=== PATIENT | female | born 1970 | race Caucasian/White ===

== ENCOUNTER 2016-07-10 14:34 | Emergency (ER) | payer MEDICAID ==
[2015-07-17 06:14] VITALS: BMI 27.3
[~2016-07-10 14:34] MED LIST: ADVIL200 MG PO; BAYER CHEWABLE81 MG PO; BENADRYL25 MG PO; BIAXIN 500 MG500 MG PO; BUPROPION XL300 MG PO; BUTALB-APAP-CA1 EACH PO; CLEOCIN HCL300 MG PO; ESGIC TABLET1 TAB PO; HYDROCODONE-APA1 TAB PO; K-TAB10 MEQ PO; LEVAQUIN500 MG PO; MILK OF MAGNESI30 ML PO; MIRALAX17 GM PO; PERCOCET 10/3251 TA1 PO; PROZAC20 MG PO; RESTORIL15 MG PO; ROXICODONE5 MG PO; VITAMIN B-1000 MCG/M; VITAMIN B-1000 MCG/M IM; ZOFRAN4 MG PO; ZOVIRAX200 MG PO
== END 2016-07-10 16:07 | disposition home or self-care (01) ==
LOC: D.ER 14:34
DX: S16.1XXA Strain of muscle, fascia and tendon at neck level, initial encounter (principal); V43.52XA Car driver injured in collision with other type car in traffic accident, initial encounter; Y93.89 Activity, other specified; Y92.410 Unspecified street and highway as the place of occurrence of the external cause; K21.9 Gastro-esophageal reflux disease without esophagitis; E83.51 Hypocalcemia; E87.6 Hypokalemia; K27.9 Peptic ulcer, site unspecified, unspecified as acute or chronic, without hemorrhage or perforation

== ENCOUNTER 2016-11-01 15:46 | Emergency (ER) | payer MEDICAID ==
[2015-07-17 06:14] VITALS: BMI 27.3
[2016-11-01 16:13] LABS: BASOPHILS 0.3 % (0-2); EOSINOPHILS 1.2 % (0-7); HEMATOCRIT 45.9 % (36.0-48.0); HEMOGLOBIN 14.8 g/dL (12-16); IMMATURE GRANULOCYTES 0.1 % (0-5); MCHC 32.2 g/dL (31.0-37.0); MCV 92.9 fL (80.0-100.0); MEAN PLATELET VOLUME 9.9 fL (7.4-10.4); NEUTROPHILS 66.4 % (40-80); RBC 4.94 10x6/uL (4.00-5.40); RDW 13.4 % (11.5-14.5); WBC 6.9 10x3/uL (4.8-10.8)
[2016-11-01 16:37] LABS: PLATELET COUNT 181 10x3/uL (130-400)
[2016-11-01 17:22] LABS: ALBUMIN 3.8 g/dL (3.4-5.0); ALKALINE PHOSPHATASE 174 U/L (46-116); ALT (SGPT) 47 U/L (10-68); BILIRUBIN - TOTAL 0.45 mg/dL (0.2-1.3); CALC OSMOLALITY 274 mosm/kg (275-300); CALCIUM 8.7 mg/dL (8.5-10.1); CARBON DIOXIDE 33.3 mmol/L (21.0-32.0); CHLORIDE - SERUM 97 mmol/L (98-107); CREATININE - SERUM 0.8 mg/dL (0.6-1.3); GLUCOSE 81 mg/dL (74-106); POTASSIUM - SERUM 4.1 mmol/L (3.5-5.1); PROTEIN - SERUM 7.2 g/dL (6.4-8.2); SODIUM 138 mmol/L (136-145); UREA NITROGEN 12 mg/dL (7-18); eGFR NON AFRICAN AMERICAN 82 mL/min (90-120)
[2016-11-01 17:33] LABS: CHOL - HDL RATIO 2.1 ratio (2.3-4.1); CHOLESTEROL, TOTAL 215 mg/dL (0-200); CREATINE KINASE 97 UL (21-215); HDL CHOLESTEROL 103 mg/dL (32-96); LDL CHOLESTEROL 69 mg/dL (0-100); LDL-HDL RATIO 0.7 ratio (1.5-3.5); TRIGLYCERIDE 218 mg/dL (30-200)
[2016-11-01 17:35] LABS: TROPONIN-I < 0.017 ng/mL (0.000-0.060)
== END 2016-11-01 18:24 | disposition home or self-care (01) ==
LOC: D.ER 15:46
PROVIDERS: Emergency Medicine
DX: I10 Essential (primary) hypertension (principal); K21.9 Gastro-esophageal reflux disease without esophagitis; E83.51 Hypocalcemia; E87.6 Hypokalemia; K27.9 Peptic ulcer, site unspecified, unspecified as acute or chronic, without hemorrhage or perforation

== ENCOUNTER 2017-01-07 09:15 | Emergency (ER) | payer MEDICAID ==
[2015-07-17 06:14] VITALS: BMI 27.3
[2017-01-07 10:39] LABS: BASOPHILS 0.7 % (0-2); EOSINOPHILS 0.9 % (0-7); HEMATOCRIT 42.5 % (36.0-48.0); HEMOGLOBIN 14.3 g/dL (12-16); IMMATURE GRANULOCYTES 0.4 % (0-5); LYMPHOCYTES 29.9 % (15-50); MCH 30.6 pg (26.0-34.0); MCHC 33.6 g/dL (31.0-37.0); MEAN PLATELET VOLUME 9.5 fL (7.4-10.4); MONOCYTES 7.3 % (2-11); NEUTROPHILS 60.8 % (40-80); PLATELET COUNT 196 10x3/uL (130-400); RBC 4.67 10x6/uL (4.00-5.40); RDW 13.6 % (11.5-14.5); WBC 5.6 10x3/uL (4.8-10.8)
[2017-01-07 10:59] LABS: APPEARANCE CLEAR (CLEAR); BILIRUBIN NEGATIVE (NEGATIVE); COLOR YELLOW (YELLOW); GLUCOSE NEGATIVE (NEGATIVE); KETONE NEGATIVE (NEGATIVE); LEUKOCYTE ESTERASE NEGATIVE (NEGATIVE); NITRITE NEGATIVE (NEGATIVE); PROTEIN NEGATIVE (NEGATIVE)
[2017-01-07 11:02] LABS: ALBUMIN 3.3 g/dL (3.4-5.0); ALKALINE PHOSPHATASE 114 U/L (46-116); ALT (SGPT) 23 U/L (10-68); AMYLASE - SERUM 34 U/L (25-115); BILIRUBIN - TOTAL 0.51 mg/dL (0.2-1.3); CALC OSMOLALITY 272 mosm/kg (275-300); CALCIUM 7.8 mg/dL (8.5-10.1); CARBON DIOXIDE 27.4 mmol/L (21.0-32.0); CHLORIDE - SERUM 101 mmol/L (98-107); CREATININE - SERUM 0.8 mg/dL (0.6-1.3); GLUCOSE 106 mg/dL (74-106); LIPASE 134 U/L (73-393); POTASSIUM - SERUM 3.8 mmol/L (3.5-5.1); PROTEIN - SERUM 6.6 g/dL (6.4-8.2); SODIUM 137 mmol/L (136-145); UREA NITROGEN 10 mg/dL (7-18); eGFR NON AFRICAN AMERICAN 82 mL/min (90-120)
== END 2017-01-07 12:08 | disposition home or self-care (01) ==
LOC: D.ER 09:15
PROVIDERS: Family Medicine
DX: R10.9 Unspecified abdominal pain (principal); K29.00 Acute gastritis without bleeding; R51 Headache; K21.9 Gastro-esophageal reflux disease without esophagitis; K27.9 Peptic ulcer, site unspecified, unspecified as acute or chronic, without hemorrhage or perforation; R19.7 Diarrhea, unspecified; F17.200 Nicotine dependence, unspecified, uncomplicated

== ENCOUNTER 2017-01-08 13:29 | Emergency (ER) | payer MEDICAID ==
[2015-07-17 06:14] VITALS: BMI 27.3
== END 2017-01-08 16:47 | disposition home or self-care (01) ==
LOC: D.ER 13:29
DX: B02.9 Zoster without complications (principal); K21.9 Gastro-esophageal reflux disease without esophagitis; K27.9 Peptic ulcer, site unspecified, unspecified as acute or chronic, without hemorrhage or perforation; R10.9 Unspecified abdominal pain; R11.0 Nausea; R51 Headache; F41.9 Anxiety disorder, unspecified; R45.1 Restlessness and agitation

== ENCOUNTER 2017-07-07 14:55 | Observation (INO) | payer MEDICAID ==
[~2017-07-07] VITALS: Ht 177.8 cm; Wt 101.4 kg
[2017-07-07 16:02] LABS: BASOPHILS 0.2 % (0-2); EOSINOPHILS 1.3 % (0-7); HEMATOCRIT 45.3 % (36.0-48.0); HEMOGLOBIN 14.9 g/dL (12-16); IMMATURE GRANULOCYTES 0.2 % (0-5); LYMPHOCYTES 23.4 % (15-50); MCH 30.4 pg (26.0-34.0); MCHC 32.9 g/dL (31.0-37.0); MCV 92.4 fL (80.0-100.0); MEAN PLATELET VOLUME 9.4 fL (7.4-10.4); MONOCYTES 6.4 % (2-11); NEUTROPHILS 68.5 % (40-80); PLATELET COUNT 205 10x3/uL (130-400); RDW 15.6 % (11.5-14.5); WBC 5.3 10x3/uL (4.8-10.8)
[2017-07-07 16:29] LABS: INR 0.97 (0.85-1.17); PROTIME 12.5 SECONDS (11.6-15.0)
[2017-07-07 16:30] LABS: D-DIMER-QUANTITATIVE 1.08 ug/mLFEU (0.20-0.54)
[2017-07-07 16:41] LABS: ALBUMIN 3.7 g/dL (3.4-5.0); ALKALINE PHOSPHATASE 186 U/L (46-116); ALT (SGPT) 27 U/L (10-68); BILIRUBIN - TOTAL 0.72 mg/dL (0.2-1.3); CALC OSMOLALITY 280 mosm/kg (275-300); CALCIUM 8.8 mg/dL (8.5-10.1); CARBON DIOXIDE 25.4 mmol/L (21.0-32.0); CHLORIDE - SERUM 101 mmol/L (98-107); GLUCOSE 118 mg/dL (74-106); PROTEIN - SERUM 7.5 g/dL (6.4-8.2); SODIUM 140 mmol/L (136-145); UREA NITROGEN 15 mg/dL (7-18); eGFR NON AFRICAN AMERICAN 63 mL/min (90-120)
[2017-07-07 16:44] LABS: PRO BNP 61 pg/mL (0-125)
[2017-07-07 17:10] LABS: UDS - AMPHET NEGATIVE QUAL (NEGATIVE); UDS - BARB NEGATIVE QUAL (NEGATIVE); UDS - BENZO POSITIVE QUAL (NEGATIVE); UDS - COCAINE NEGATIVE QUAL (NEGATIVE); UDS - OPIATE POSITIVE QUAL (NEGATIVE); UDS - PCP NEGATIVE QUAL (NEGATIVE); UDS - THC NEGATIVE QUAL (NEGATIVE)
[2017-07-07 17:17] LABS: TROPONIN-I < 0.017 ng/mL (0.000-0.060)
[2017-07-07 17:33] LABS: APPEARANCE SLT CLOUDY (CLEAR); BILIRUBIN NEGATIVE (NEGATIVE); COLOR DK YELLOW (YELLOW); GLUCOSE NEGATIVE (NEGATIVE); KETONE NEGATIVE (NEGATIVE); NITRITE NEGATIVE (NEGATIVE); PROTEIN NEGATIVE (NEGATIVE); UROBILINOGEN NORMAL (NORMAL)
[2017-07-07 17:34] LABS: WHITE CELLS - URINE 0-5 /hpf (0-5)
[2017-07-07 17:35] LABS: BACTERIA FEW /hpf (NONE SEEN); MUCUS <1+ /lpf (NONE SEEN); RED CELLS - URINE 0-5 /hpf (0-5)
[2017-07-07] MEDS ORDERED: NORVASC10 MG PO (20:21)
[2017-07-07] MEDS ORDERED: TOPROL XL100 MG PO (20:21)
[2017-07-07] MEDS ORDERED: LINEZOLID600 MG PO (20:22)
[2017-07-07] MEDS ORDERED: HYDROCHLOROTH12.5 M1 PO (20:22)
[2017-07-07] MEDS ORDERED: KLONOPIN0.5 MG PO (20:23)
[2017-07-07] MEDS ORDERED: ULTRAM50 MG PO (20:23)
[2017-07-07] MEDS ORDERED: IBUPROFEN800 MG PO (20:24)
[2017-07-07] MEDS ORDERED: ALEVE220 MG PO (20:25)
[2017-07-08 02:20] VITALS: BP 146/102; BMI 32.0
[2017-07-08 04:00] VITALS: BP 102/67
[2017-07-08 06:02] LABS: BASOPHILS 0.6 % (0-2); EOSINOPHILS 3.7 % (0-7); HEMATOCRIT 36.6 % (36.0-48.0); LYMPHOCYTES 34.5 % (15-50); MCH 30.5 pg (26.0-34.0); MCHC 31.7 g/dL (31.0-37.0); MEAN PLATELET VOLUME 9.3 fL (7.4-10.4); MONOCYTES 10.3 % (2-11); NEUTROPHILS 50.9 % (40-80); RDW 15.9 % (11.5-14.5)
[2017-07-08 06:08] LABS: HEMOGLOBIN 11.6 g/dL (12-16); MCV 96.3 fL (80.0-100.0); PLATELET COUNT 156 10x3/uL (130-400); WBC 3.5 10x3/uL (4.8-10.8)
[2017-07-08 06:23] LABS: ANION GAP 13.1 mmol/L (8-16); BILIRUBIN - TOTAL 0.3 mg/dL (0.2-1.3); CALCIUM 7.6 mg/dL (8.5-10.1); CARBON DIOXIDE 28.9 mmol/L (21.0-32.0); CREATININE - SERUM 0.9 mg/dL (0.6-1.3)
[2017-07-08 08:54] VITALS: BP 120/87
[2017-07-08] MEDS ORDERED: TORADOL10 MG PO (09:53)
[2017-07-08] MEDS ORDERED: LEVAQUIN500 MG PO (10:37)
[2017-07-08 20:26] VITALS: Ht 177.8 cm; Wt 101.4 kg
== END 2017-07-08 11:46 | disposition home or self-care (01) ==
LOC: D.ER 14:55 → OBSVTIME 19:35 → D.MS 19:35
PROVIDERS: Family Medicine; Nurse Practitioner Family
DX: R07.81 Pleurodynia (principal); W19.XXXA Unspecified fall, initial encounter; K59.00 Constipation, unspecified; D75.1 Secondary polycythemia

== ENCOUNTER 2017-07-17 20:56 | Emergency (ER) | payer MEDICAID ==
[2017-07-08 20:26] VITALS: BMI 32.0
[~2017-07-17 20:56] MED LIST changes: +ALEVE220 MG PO; +HYDROCHLOROTH12.5 M1 PO; +IBUPROFEN800 MG PO; +KLONOPIN0.5 MG PO; +LINEZOLID600 MG PO; +NORVASC10 MG PO; +TOPROL XL100 MG PO; +TORADOL10 MG PO; +ULTRAM50 MG PO
[2017-07-17 22:36] LABS: BASOPHILS 0.3 % (0-2); EOSINOPHILS 1.1 % (0-7); HEMATOCRIT 40.3 % (36.0-48.0); IMMATURE GRANULOCYTES 0.3 % (0-5); LYMPHOCYTES 25.7 % (15-50); MCH 30.8 pg (26.0-34.0); MCHC 32.3 g/dL (31.0-37.0); MCV 95.5 fL (80.0-100.0); MEAN PLATELET VOLUME 8.9 fL (7.4-10.4); MONOCYTES 11.4 % (2-11); NEUTROPHILS 61.2 % (40-80); RBC 4.22 10x6/uL (4.00-5.40); RDW 16.4 % (11.5-14.5); WBC 6.2 10x3/uL (4.8-10.8)
[2017-07-17 22:45] LABS: PLATELET COUNT 219 10x3/uL (130-400)
[2017-07-17 22:48] LABS: ALBUMIN 3.6 g/dL (3.4-5.0); BILIRUBIN - TOTAL 0.36 mg/dL (0.2-1.3); CALCIUM 8.9 mg/dL (8.5-10.1); CARBON DIOXIDE 26.7 mmol/L (21.0-32.0); CREATININE - SERUM 0.9 mg/dL (0.6-1.3); POTASSIUM - SERUM 3.7 mmol/L (3.5-5.1); PROTEIN - SERUM 7.1 g/dL (6.4-8.2)
== END 2017-07-18 01:20 | disposition home or self-care (01) ==
LOC: D.ER 20:56
PROVIDERS: Family Medicine
DX: R09.1 Pleurisy (principal); R07.89 Other chest pain

== ENCOUNTER 2018-03-31 16:08 | Emergency (ER) | payer MEDICAID ==
[~2018-03-31] VITALS: Ht 177.8 cm; Wt 91.4 kg
[2018-03-31 16:11] VITALS: Ht 177.8 cm; Wt 91.4 kg
[2018-03-31] MEDS ORDERED: ELAVIL10 MG PO (16:49)
[2018-03-31] MEDS ORDERED: ROBAXIN500 MG PO (16:52)
[2018-03-31 17:26] VITALS: BP 155/102
== END 2018-03-31 17:26 | disposition home or self-care (01) ==
LOC: D.ER 16:08
DX: H92.02 Otalgia, left ear (principal); M26.609 Unspecified temporomandibular joint disorder, unspecified side

== ENCOUNTER 2018-07-14 17:39 | Emergency (ER) | payer MEDICAID ==
[~2018-07-14] VITALS: Ht 177.8 cm; Wt 85.5 kg
[~2018-07-14 17:39] MED LIST changes: +ELAVIL10 MG PO; +ROBAXIN500 MG PO
[2018-07-14 17:41] VITALS: Ht 177.8 cm; Wt 85.5 kg
[2018-07-14 18:15] LABS: BASOPHILS 0.4 % (0-2); EOSINOPHILS 0.9 % (0-7); HEMOGLOBIN 15.2 g/dL (12-16); IMMATURE GRANULOCYTES 0.3 % (0-5); LYMPHOCYTES 14.5 % (15-50); MCH 30.8 pg (26.0-34.0); MCHC 33.8 g/dL (31.0-37.0); MCV 91.3 fL (80.0-100.0); MONOCYTES 5.7 % (2-11); NEUTROPHILS 78.2 % (40-80); PLATELET COUNT 237 10x3/uL (130-400); RBC 4.93 10x6/uL (4.00-5.40); RDW 15.6 % (11.5-14.5); WBC 7.7 10x3/uL (4.8-10.8)
[2018-07-14 18:30] LABS: ALBUMIN 3.5 g/dL (3.4-5.0); ALKALINE PHOSPHATASE 116 U/L (46-116); ALT (SGPT) 42 U/L (10-68); BILIRUBIN - TOTAL 0.12 mg/dL (0.2-1.3); CALC OSMOLALITY 286 mosm/kg (275-300); CALCIUM 7.8 mg/dL (8.5-10.1); CARBON DIOXIDE 25.2 mmol/L (21.0-32.0); CHLORIDE - SERUM 105 mmol/L (98-107); CREATININE - SERUM 0.7 mg/dL (0.6-1.3); GLUCOSE 83 mg/dL (74-106); POTASSIUM - SERUM 3.8 mmol/L (3.5-5.1); SODIUM 145 mmol/L (136-145); UREA NITROGEN 11 mg/dL (7-18); eGFR NON AFRICAN AMERICAN > 90 mL/min (90-120)
[2018-07-14 20:14] VITALS: BP 152/93
== END 2018-07-14 20:14 | disposition home or self-care (01) ==
LOC: D.ER 17:39
PROVIDERS: Emergency Medicine
DX: I10 Essential (primary) hypertension (principal); H61.21 Impacted cerumen, right ear; G43.909 Migraine, unspecified, not intractable, without status migrainosus; R42 Dizziness and giddiness

== ENCOUNTER 2019-01-02 11:46 | Emergency (ER) | payer MEDICAID ==
[~2019-01-02] VITALS: Ht 177.8 cm; Wt 81.4 kg
[2019-01-02 11:56] VITALS: Ht 177.8 cm; Wt 81.4 kg
[2019-01-02 14:12] LABS: ALBUMIN 3.7 g/dL (3.4-5.0); ALKALINE PHOSPHATASE 113 U/L (46-116); ALT (SGPT) 17 U/L (10-68); BILIRUBIN - TOTAL 0.98 mg/dL (0.2-1.3); CALC OSMOLALITY 269 mosm/kg (275-300); CALCIUM 7.8 mg/dL (8.5-10.1); CARBON DIOXIDE 22.2 mmol/L (21.0-32.0); CHLORIDE - SERUM 96 mmol/L (98-107); CREATININE - SERUM 0.7 mg/dL (0.6-1.3); GLUCOSE 105 mg/dL (74-106); POTASSIUM - SERUM 4.4 mmol/L (3.5-5.1); PROTEIN - SERUM 7.4 g/dL (6.4-8.2); SODIUM 135 mmol/L (136-145); UREA NITROGEN 12 mg/dL (7-18); eGFR NON AFRICAN AMERICAN > 90 mL/min (90-120)
[2019-01-02 14:15] LABS: TROPONIN-I < 0.017 ng/mL (0.000-0.060)
[2019-01-02 14:30] LABS: BASOPHILS 0.3 % (0-2); EOSINOPHILS 0.3 % (0-7); HEMATOCRIT 42.2 % (36.0-48.0); HEMOGLOBIN 15.3 g/dL (12-16); IMMATURE GRANULOCYTES 0.3 % (0-5); LYMPHOCYTES 12.4 % (15-50); MCH 32.8 pg (26.0-34.0); MCHC 36.3 g/dL (31.0-37.0); MCV 90.6 fL (80.0-100.0); MEAN PLATELET VOLUME 9.3 fL (7.4-10.4); MONOCYTES 9.8 % (2-11); NEUTROPHILS 76.9 % (40-80); PLATELET COUNT 217 10x3/uL (130-400); RBC 4.66 10x6/uL (4.00-5.40); RDW 13.9 % (11.5-14.5); WBC 7.7 10x3/uL (4.8-10.8)
[2019-01-02 15:30] LABS: APPEARANCE HAZY (CLEAR); BILIRUBIN NEGATIVE (NEGATIVE); COLOR YELLOW (YELLOW); GLUCOSE NEGATIVE (NEGATIVE); KETONE MODERATE mg/dL (NEGATIVE); NITRITE POSITIVE (NEGATIVE); PROTEIN TRACE mg/dL (NEGATIVE); UROBILINOGEN NORMAL (NORMAL)
[2019-01-02 15:31] LABS: BACTERIA MODERATE /hpf (NONE SEEN); EPITHELIAL CELLS 0-5 /hpf (0-5); RED CELLS - URINE OCC /hpf (0-5); WHITE CELLS - URINE 0-5 /hpf (0-5)
[2019-01-02 15:32] LABS: MUCUS <1+ /lpf (NONE SEEN); UDS - AMPHET NEGATIVE QUAL (NEGATIVE); UDS - BARB NEGATIVE QUAL (NEGATIVE); UDS - BENZO POSITIVE QUAL (NEGATIVE); UDS - COCAINE NEGATIVE QUAL (NEGATIVE); UDS - OPIATE NEGATIVE QUAL (NEGATIVE); UDS - PCP NEGATIVE QUAL (NEGATIVE); UDS - THC POSITIVE QUAL (NEGATIVE)
[2019-01-02] MEDS ORDERED: VOLTAREN75 MG PO (17:08)
[2019-01-02] MEDS ORDERED: LEVAQUIN750 MG PO (17:08)
[2019-01-02] MEDS ORDERED: PHENERGAN25 M1 PO (17:08)
[2019-01-02 19:10] VITALS: BP 161/88
== END 2019-01-02 19:11 | disposition home or self-care (01) ==
LOC: D.ER 11:46
PROVIDERS: Emergency Medicine
DX: N39.0 Urinary tract infection, site not specified (principal); E86.0 Dehydration; R55 Syncope and collapse; S01.01XA Laceration without foreign body of scalp, initial encounter; W18.30XA Fall on same level, unspecified, initial encounter; Y93.89 Activity, other specified; Y92.019 Unspecified place in single-family (private) house as the place of occurrence of the external cause

== ENCOUNTER 2019-04-23 18:57 | Emergency (ER) | payer MEDICAID ==
[~2019-04-23] VITALS: Ht 177.8 cm; Wt 80.0 kg
[~2019-04-23 18:57] MED LIST changes: +LEVAQUIN750 MG PO; +PHENERGAN25 M1 PO; +VOLTAREN75 MG PO
[2019-04-23 19:03] VITALS: Ht 177.8 cm; Wt 80.0 kg
[2019-04-23] MEDS ORDERED: KLONOPIN0.5 MG PO (19:05)
[2019-04-23] MEDS ORDERED: TORADOL10 MG PO (21:51)
[2019-04-23 22:23] VITALS: BP 153/90
== END 2019-04-23 22:23 | disposition home or self-care (01) ==
LOC: D.ER 18:57
DX: S42.202A Unspecified fracture of upper end of left humerus, initial encounter for closed fracture (principal); W19.XXXA Unspecified fall, initial encounter; Y93.9 Activity, unspecified; Y92.89 Other specified places as the place of occurrence of the external cause; R51 Headache; S05.10XA Contusion of eyeball and orbital tissues, unspecified eye, initial encounter; M43.6 Torticollis; I10 Essential (primary) hypertension; D46.9 Myelodysplastic syndrome, unspecified

== ENCOUNTER → 2019-11-15 13:55 | Outpatient (CLI) | payer MEDICAID ==
[2019-04-23 19:03] VITALS: BMI 25.3
[2019-11-16 02:32] LABS: BASOPHILS 0.6 % (0-2); EOSINOPHILS 0.9 % (0-7); HEMATOCRIT 35.6 % (36.0-48.0); HEMOGLOBIN 10.7 g/dL (12-16); IMMATURE GRANULOCYTES 0.6 % (0-5); MCH 35.2 pg (26.0-34.0); MCHC 30.1 g/dL (31.0-37.0); MCV 117.1 fL (80.0-100.0); MEAN PLATELET VOLUME 10.1 fL (7.4-10.4); MONOCYTES 9.4 % (2-11); NEUTROPHILS 55.5 % (40-80); PLATELET COUNT 314 10x3/uL (130-400); RBC 3.04 10x6/uL (4.00-5.40); RDW 20.9 % (11.5-14.5); WBC 3.4 10x3/uL (4.8-10.8)
[2019-11-16 02:51] LABS: ALBUMIN 3.2 g/dL (3.4-5.0); ALKALINE PHOSPHATASE 258 U/L (30-120); ALT (SGPT) 322 U/L (10-68); BILIRUBIN - TOTAL 2.18 mg/dL (0.2-1.3); CALC OSMOLALITY 279 mosm/kg (275-300); CALCIUM 8.8 mg/dL (8.5-10.1); CARBON DIOXIDE 28.7 mmol/L (21.0-32.0); CHLORIDE - SERUM 105 mmol/L (98-107); CREATININE - SERUM 0.7 mg/dL (0.6-1.3); GLUCOSE 93 mg/dL (74-106); POTASSIUM - SERUM 3.6 mmol/L (3.5-5.1); PROTEIN - SERUM 6.3 g/dL (6.4-8.2); SODIUM 141 mmol/L (136-145); UREA NITROGEN 11 mg/dL (7-18); eGFR NON AFRICAN AMERICAN > 90 mL/min (90-120)
== END | disposition home or self-care (01) ==
LOC: D.LABREF 13:55
PROVIDERS: ATTEND Legal Medicine
DX: N63.10 Unspecified lump in the right breast, unspecified quadrant (principal); I10 Essential (primary) hypertension

== ENCOUNTER 2019-11-20 09:30 | Outpatient (CLI) | payer MEDICAID ==
[2019-04-23 19:03] VITALS: BMI 25.3
== END 2019-11-20 10:30 | disposition home or self-care (01) ==
LOC: D.MAMMO 09:30
PROVIDERS: ATTEND Emergency Medicine
DX: N63.11 Unspecified lump in the right breast, upper outer quadrant (principal)